=== PATIENT | female | born 1970 | race Caucasian/White ===

== ENCOUNTER 2023-11-11 22:21 | Emergency (ER) | payer OTHER ==
[~2023-11-11] VITALS: Ht 167.6 cm; Wt 70.3 kg
[2023-11-11] MEDS ORDERED: AMOXICILLIN-CLAVUL 875-125MG TABLET ONE (23:06)
[2023-11-11] MEDS ORDERED: KETOROLAC TROMETHAMINE 30 MG INJ ONE (23:06)
[2023-11-11] MEDS: AMOXICILLIN-CLAVUL 875-125MG TABLET PO ONE (23:12)
[2023-11-11] MEDS: KETOROLAC TROMETHAMINE 30 MG INJ IM ONE (23:13)
[2023-11-11] MEDS ORDERED: AMOX-430 PO (23:19)
[2023-11-11] MEDS ORDERED: HYDR-4209 PO (23:24)
[2023-11-11] MEDS ORDERED: HYDROCODONE/APAP 5-325MG TABLET ONE (23:26)
[2023-11-11] MEDS: HYDROCODONE/APAP 5-325MG TABLET PO ONE (23:30)
[2023-11-11 23:39] VITALS: BP 142/80; TEMP 97.8; O2SAT 98
== END 2023-11-11 23:39 | disposition home or self-care (01) ==
LOC: ER 22:28
DX: K04.01 Reversible pulpitis (principal); K02.9 Dental caries, unspecified; K08.89 Other specified disorders of teeth and supporting structures; L03.211 Cellulitis of face; R03.0 Elevated blood-pressure reading, without diagnosis of hypertension; F17.200 Nicotine dependence, unspecified, uncomplicated; Z79.899 Other long term (current) drug therapy; Z98.890 Other specified postprocedural states
CPT/HCPCS: A4606; A4663; J1885